=== PATIENT | female | born 1965 | race Two or more races ===

== ENCOUNTER 2020-07-19 13:49 | Emergency (ER) | payer MEDICAID, OTHER ==
[~2020-07-19] VITALS: Ht 172.7 cm; Wt 119.7 kg
[2020-07-19] MEDS ORDERED: cloNIDine HCL 0.1 MG TAB PO ONE (14:30)
[2020-07-19 15:59] VITALS: BP 146/84
== END 2020-07-19 16:29 | disposition home or self-care (01) ==
LOC: ER 13:49
DX: I16.0 Hypertensive urgency (principal); F41.9 Anxiety disorder, unspecified; Z90.89 Acquired absence of other organs
CPT/HCPCS: 93005